=== PATIENT | male | born 1980 | race Caucasian/White ===

== ENCOUNTER 2022-11-20 09:13 | Outpatient (CLI) | payer BC, SELFPAY | END 2022-11-20 09:14 | disposition home or self-care (01) | PROVIDERS: Visit Provider Family Medicine | DX: Z00.00 Encounter for general adult medical examination without abnormal findings (principal); R73.03 Prediabetes; I10 Essential (primary) hypertension; R10.9 Unspecified abdominal pain; N52.9 Male erectile dysfunction, unspecified; Z13.6 Encounter for screening for cardiovascular disorders; Z12.5 Encounter for screening for malignant neoplasm of prostate | CPT/HCPCS: 80053; 80061; 82043; 82570; 84153; 84403 ==

== ENCOUNTER 2023-01-26 08:33 | Outpatient (CLI) | payer BC, SELFPAY | END 2023-01-26 08:34 | disposition home or self-care (01) | LOC: NFLDREF 01-27 18:31 | PROVIDERS: PCP Family Medicine; Referring Provider Family Medicine; Visit Provider Family Medicine | DX: E29.1 Testicular hypofunction (principal); N52.9 Male erectile dysfunction, unspecified; R53.83 Other fatigue | CPT/HCPCS: 82533; 82728; 83001; 83002; 84146; 84270; 84402; 84403; 84443 ==

== ENCOUNTER 2023-02-02 07:35 | Outpatient (CLI) | payer BC, SELFPAY ==
--- NOTE | 2023-02-02 07:45 | CRLHL7_ITS ---
For Patients: As a result of the Century Cures Act, medical imaging exams and procedure reports are released immediately into your electronic medical record. You may view this report before your referring provider. If you have questions, please contact your health care provider. BILATERAL DIAGNOSTIC MAMMOGRAM WITH COMPUTER-AIDED DETECTION AND TOMOSYNTHESIS LEFT BREAST ULTRASOUND CLINICAL HISTORY: LEFT breast mass/asymmetry. COMPARISON: CT 01/15/2023. TECHNIQUE: Digital BILATERAL mammogram in 4 projections. Computer-aided detection and tomosynthesis used. Real-time ultrasound imaging of LEFT breast with imaging documentation. Scanning was performed by both the technologist and the radiologist. BREAST COMPOSITION: The breasts are almost entirely fatty. FINDINGS: 3D CC/MLO bilateral mammogram images submitted. Left XCCL mammogram images also submitted. There is asymmetric nodular density within the lateral LEFT breast without architectural distortion or adenopathy. No suspicious calcifications. Normal RIGHT breast tissue. Targeted LEFT breast ultrasound performed laterally in the area of concern. At 3 o`clock 8 cm from the nipple there is a collection of fluid measuring in total 3.4 x 0.6 x 4.3 cm. Mild overlying skin changes are present. This has been present for many years per the patient. No suspicious findings. IMPRESSION: Chronic developmental cystic area within the LEFT breast. No evidence of malignancy. RECOMMENDATIONS: Clinical follow-up. No additional imaging or biopsy indicated. BI-RADS Category 2: Benign A lay language report of this examination will be provided to the patient. Results and recommendations discussed with the patient. Ajay Valencia MD @02/02/2023 8:34:47 AM/oh ELVIRA/Dictated by: Ajay Valencia MD @ 02/02/2023 10:26:00 AM (Electronically Signed)
--- NOTE | 2023-02-02 08:15 | CRLHL7_ITS ---
For Patients: As a result of the Cures Act, medical imaging exams and procedure reports are released immediately into your electronic medical record. You may view this report before your referring provider. If you have questions, please contact your health care provider. LEFT BREAST ULTRASOUND, 02/02/2023 CLINICAL HISTORY: LEFT breast mass/asymmetry. COMPARISON: CT 01/15/2023. TECHNIQUE: Digital BILATERAL mammogram in four projections. Real-time ultrasound imaging of LEFT breast with imaging documentation. Scanning was performed by both the technologist and the radiologist. BREAST COMPOSITION: Almost entirely fat. FINDINGS: 3D CC/MLO BILATERAL mammogram images submitted. LEFT XCCL mammogram images also submitted. There is asymmetric nodular density within the lateral LEFT breast without architectural distortion or adenopathy. No suspicious calcifications. Normal RIGHT breast tissue. Targeted LEFT breast ultrasound performed laterally in the area of concern. At 3 o/clock 8 cm from the nipple there is a collection of fluid measuring in total 3.4 x 0.6 x 4.3 cm. Mild overlying skin changes are present. This has been present for many years per the patient. No suspicious findings. IMPRESSION: Chronic developmental cystic area within the LEFT breast. No evidence of malignancy. RECOMMENDATIONS: Clinical follow-up. No additional imaging or biopsy indicated. BI-RADS: 2. Benign. Results and recommendations discussed with the patient. Dictated by Ajay Valencia MD @ 02/02/2023 8:34:46 AM JR/Dictated by: Ajay Valencia MD @ 02/02/2023 8:34:00 AM (Electronically Signed)
== END 2023-02-02 07:36 | disposition home or self-care (01) ==
LOC: MAMMO 07:36
PROVIDERS: PCP Family Medicine; Visit Provider Family Medicine
DX: N63.20 Unspecified lump in the left breast, unspecified quadrant (principal); R92.1 Mammographic calcification found on diagnostic imaging of breast
CPT/HCPCS: 76642; 77066; G0279

== ENCOUNTER 2023-05-19 08:33 | Outpatient (CLI) | payer BC, SELFPAY | END 2023-05-19 08:34 | disposition home or self-care (01) | LOC: NFLDREF 05-20 21:14 | PROVIDERS: PCP Family Medicine; Referring Provider Family Medicine; Visit Provider Family Medicine | DX: E29.1 Testicular hypofunction (principal); N52.9 Male erectile dysfunction, unspecified | CPT/HCPCS: 83001; 83002; 84153; 84154; 84270; 84402; 84403 ==

== ENCOUNTER 2023-07-29 09:21 | Outpatient (CLI) | payer BC, SELFPAY | END 2023-07-29 09:22 | disposition home or self-care (01) | PROVIDERS: PCP Family Medicine; Visit Provider Family Medicine | DX: Z01.818 Encounter for other preprocedural examination (principal); I10 Essential (primary) hypertension; E29.1 Testicular hypofunction; R73.03 Prediabetes | CPT/HCPCS: 80053; 80061; 82043; 82570; 84270; 84402; 84403 ==

== ENCOUNTER 2023-08-07 10:13 | Day surgery (SDC) | payer BC, SELFPAY ==
[2023-08-07] VITALS (10 sets, daily range): BP systolic 118–141; BP diastolic 69–103; PULSE 76–99; RESP 12–16; TEMP 36.4–36.7; O2SAT 94–97; BMI 36.5
[2023-08-07] MEDS: LACTATED RINGERS 1000 ML 1,000 ML 100 ML IV (10:15)
[2023-08-07] MEDS: SODIUM CHLORIDE 0.9 % (FLUSH) 10 ML SYRINGE IVF (10:33)
--- NOTE | 2023-08-07 10:52 | W.PM.H&PU ---
History & Physical Update History & Physical Update H&P Reviewed and patient assessed: No changes noted
--- NOTE | 2023-08-07 10:52 | PM.GSPRC ---
Operative Note Date of procedure: 08/07/23 Pre-op diagnosis: Supraumbilical hernia Post-op diagnosis: Same Type of Procedure: Open 1 cm supraumbilical hernia repair with mesh. Indications: The patient is a 43-year-old male who noticed a bulge near his umbilicus. This has become increasingly symptomatic for him. CT scan did show a small hernia here on the right just above the umbilicus. After discussion of options he elected to proceed with repair. Procedure Description: After discussing the risks and benefits of the procedure, the patient signed informed consent.? The operative site was marked and the patient was brought to the operating room and placed on the operating table in supine position.? Care was taken to pad the patient's pressure points.?? The patient was then intubated by anesthesia.?? The operative site was then prepped and draped in the usual sterile fashion.? A time-out was then performed. An incision was made in the midline just above the umbilicus corresponding to the palpable area of hernia. Dissection was taken down into the subcutaneous fat. A preperitoneal fat containing hernia was encountered just superior to the umbilicus and to the right of midline. It this was dissected down to fascia. There was a small fascial defect noted. The preperitoneal fat was amputated. The fascial edges were cleared. Again the opening was very small. This measured only 1 cm. Because of this the decision was made to close the hernia primarily. This was done with 0 Nurolon suture in a [id number] fashion. Once this was done, the skin was closed with 3-0 Vicryl dermal sutures and 4-0 Monocryl running subcuticular suture. Glue was then applied. ? The patient was then woken and transported to the recovery area in stable condition. ? The patient tolerated the procedure well. Findings: 1 cm fat containing supraumbilical hernia. Anesthesia: GETA Surgeon: Kellee Nevarez MD Estimated blood loss (mL): 1 Condition: stable Disposition: PACU
[2023-08-07] MEDS: CEFAZOLIN 2 GM INJ IVP (11:30)
[2023-08-07] MEDS: BUPIVACAINE 0.5% 30 ML INJECTION (11:59)
--- NOTE | 2023-08-07 12:40 | W.ANESCHARGE ---
Anesthesia Charges Start Date/Time Anesthesia Start Date: 08/07/23 Anesthesia Start Time: 11:25 Stop Date/Time Anesthesia Stop Date: 08/07/23 Anesthesia Stop Time: 12:21
== END 2023-08-07 13:26 | disposition home or self-care (01) ==
PROVIDERS: PCP Family Medicine; Visit Provider Surgery
PROC: (CPT 49591; principal; 2023-08-07 10:30)
DX: K42.9 Umbilical hernia without obstruction or gangrene (principal)
CPT/HCPCS: 49591; 00752; A9270; J0330; J0665; J0690; J1100; J1885; J2250; J2405; J2704; J3010; J3490; J7120

== ENCOUNTER 2023-09-23 19:38 | Outpatient (CLI) | payer OTHER, SELFPAY ==
--- NOTE | 2023-10-14 13:12 | W.PM.SLEEP ---
Sleep Study Details Details Interpreting Provider: Karolyn Date of Sleep Study: 09/23/23 Sleep Study Details: STUDY TYPE:? Home unattended ? BMI:? 34.5 ORDERING PROVIDER:? Cedric INDICATION:? Concerns about sleep apnea ? SLEEP SUMMARY:? 444 minutes monitor RESPIRATORY SUMMARY:? AHI 30.8 Low oxygen 79 35.7% of study oxygen less than 90% Snoring 9.3% PERIODIC LIMB MOVEMENTS OF SLEEP:? Not recorded on home study CARDIAC:? Range 49-95, mean 60.1 beats per minute IMPRESSION:? Severe obstructive sleep apnea with significant hypo oxygenation RECOMMENDATION: CPAP AutoSet 4-17. Recommend overnight oximetry once effective therapy is established.
== END 2023-09-23 19:39 | disposition home or self-care (01) ==
LOC: SLEEP 19:39
PROVIDERS: PCP Family Medicine; Visit Provider Family Medicine
DX: G47.33 Obstructive sleep apnea (adult) (pediatric) (principal)
CPT/HCPCS: 95806

== ENCOUNTER 2023-09-25 08:15 | Outpatient (REF) | payer OTHER, SELFPAY | END 2023-09-25 08:16 | disposition home or self-care (01) | LOC: NFLDREF 08:15 | PROVIDERS: PCP Family Medicine; Referring Provider Family Medicine; Visit Provider Family Medicine | DX: E29.1 Testicular hypofunction (principal) | CPT/HCPCS: 84270; 84402; 84403 ==

== ENCOUNTER 2024-04-07 13:12 | Outpatient (CLI) | payer OTHER, SELFPAY | END 2024-04-07 13:13 | disposition home or self-care (01) | PROVIDERS: PCP Family Medicine; Visit Provider Family Medicine | DX: Z00.00 Encounter for general adult medical examination without abnormal findings (principal); I10 Essential (primary) hypertension; R73.03 Prediabetes; E29.1 Testicular hypofunction; Z80.42 Family history of malignant neoplasm of prostate; Z11.59 Encounter for screening for other viral diseases; Z12.5 Encounter for screening for malignant neoplasm of prostate; Z13.6 Encounter for screening for cardiovascular disorders; Z13.1 Encounter for screening for diabetes mellitus | CPT/HCPCS: 80053; 80061; 82043; 82570; 86803; G0103 ==

== ENCOUNTER 2025-06-27 15:31 | Outpatient (CLI) | payer OTHER, SELFPAY | END 2025-06-27 15:32 | disposition home or self-care (01) | LOC: NFLDREF 07-01 18:05 | PROVIDERS: PCP Family Medicine; Referring Provider Family Medicine; Visit Provider Family Medicine | DX: Z12.11 Encounter for screening for malignant neoplasm of colon (principal); I10 Essential (primary) hypertension; Z00.00 Encounter for general adult medical examination without abnormal findings | CPT/HCPCS: 80053; 80061; 82043; 82570; G0103 ==